=== PATIENT | female | born 1990 | race Caucasian/White ===

== ENCOUNTER 2018-03-31 21:03 | Emergency (ER) | payer SELFPAY ==
[2018-03-31 21:15] VITALS: BP 133/90
--- NOTE | 2018-03-31 21:34 | UC ---
Bite Injury/Animal HPI - HPI Summary HPI Summary: This is linden Tinajero documenting for attending Honey Ball MD. This patient is a 27 year old F presenting to [facility] with a chief complaint of cat bite to her left wrist since 20:30. The patient reports that the cat is a barn cat and received a rabies vaccine in 2017. The patient rates the pain 1/10 in severity. Symptoms aggravated by nothing. Symptoms alleviated by nothing. The patient notes that the cat is being monitored at the vet. - History of Current Complaint Chief Complaint: UCBiteInjury Stated Complaint: CAT BITE Time Seen by Provider: 03/31/18 21:28 Hx Obtained From: Patient Hx Last Menstrual Period: 03/14/18 Severity Currently: Mild Severity Initially: Mild Pain Intensity: 1 Pain Scale Used: 0-10 Numeric Onset/Duration: Sudden Onset, Lasting Hours, Still Present Type of Bite: Animal - barn cat Has Animal Been Immunized?: Yes Aggravating Factor(s): Nothing Alleviating Factor(s): Nothing Associated Signs And Symptoms: Positive: Negative Animal Available for Observation: Yes Animal Control Notified: Yes - Allergies/Home Medications Allergies/Adverse Reactions: Allergies Allergy/AdvReac Type Severity Reaction Status Date / Time codeine Allergy Fever Verified 03/31/18 21:15 Home Medications: Home Medications Escitalopram Oxalate [Lexapro 10 mg] 03/31/18 [History] buPROPion HCl [Bupropion HCl] 150 mg 03/31/18 [History] traZODone TAB* [Desyrel TAB*] 03/31/18 [History] PMH/Surg Hx/FS Hx/Imm Hx Previously Healthy: Yes Other Endocrine History: negative Other Cardiovascular History: negative Other Respiratory History: negative Other GI/ History: negative Other Neurological History: negative Other Psychological History: negative Other Cancer History: negative - Surgical History Surgical History: Yes Surgery Procedure, Year, and Place: appy as a child. ORIF femur 2004 - Family History Known Family History: Positive: None - patient denies relevant FHx - Social History Alcohol Use: None Substance Use Type: None Smoking Status (MU): Never Smoked Tobacco - Immunization History Most Recent Tetanus Shot: 09/14/13 Review of Systems Constitutional: Negative - negative fever Skin: Other - cat bite to left wrist Eyes: Negative ENT: Negative - negative epistaxis Respiratory: Negative Gastrointestinal: Negative - negative vomiting Genitourinary: Negative Motor: Negative Neurovascular: Negative Musculoskeletal: Negative Neurological: Negative Psychological: Negative Is Patient Immunocompromised?: No All Other Systems Reviewed And Are Negative: Yes Physical Exam - Summary Physical Exam Summary: Appearance: Well-Appearing, No Pain Distress, Well-Nourished Eyes: conjunctiva clear, no discharge ENT: Hearing grossly normal, no muffled/hoarse voice. Neck: Normal, Supple Respiratory/Lung Sounds: Lungs clear, Normal breath sounds, No respiratory distress, No accessory muscle use Cardiovascular: RRR, No murmur Abdomen: Nontender, Soft, no guarding, not distended Bowel Sounds: Present Musculoskeletal: Normal Neurological: Alert, muscle tone normal Psychiatric:Normal, age appropriate behavior Skin: small bite wounds with some breakage of the skin on dorsal left wrist and the base of the thumb, mildly erythematous but no active discharge Triage Information Reviewed: Yes Vital Signs: Initial Vital Signs Temp 99.6 F 03/31/18 21:10 Pulse 79 03/31/18 21:10 Resp 16 03/31/18 21:10 BP 133/90 03/31/18 21:10 Pulse Ox 100 03/31/18 21:10 Vital Signs Reviewed: Yes Bite Injury Course/Dx - Course Course Of Treatment: During the visit today, we discussed the findings and further plan. She had her last tetanus shot here in August 2013 . One dose of Augmentin was given to her in urgent care today . Wound was cleaned and dressed. I will prescribe the medication to the pharmacy . Patient expressed understanding . - Differential Dx/Diagnosis Provider Diagnoses: cat bite Discharge - Sign-Out/Discharge Documenting (check all that apply): Patient Departure - Discharge Plan Condition: Stable Disposition: HOME Prescriptions: Amoxicillin/Clavulanate TAB* [Augmentin TAB 875*] 875 mg PO BID 10 Days #20 tab Patient Education Materials: Animal Bite (ED) Referrals: [facility] [place] [facility] [Outside] - 1 Week Additional Instructions: Please start taking the medication as prescribed to the pharmacy . Follow up with your primary care doctor in 1 week. Return to Urgent care / ER if symptoms get worse. - Billing Disposition and Condition Condition: STABLE Disposition: Home Images Hands: 1 - Cat bite wounds
[2018-03-31] MEDS ORDERED: Amoxicillin/Clavulanate TAB* 875 MG PO ONE (21:40)
--- NOTE | 2018-04-01 09:31 | ED ---
Progress - Progress Note Progress Note: Haven Shabazz, at [facility] requests antibiotic prescribed yesterday to be sent to [facility]. Per pharmacist, per pt, [facility] does not have the RX. Chart reviewed, per Dr. Ball, RX given verbally to Harika Orourke for Augmentin 875mg po bid #20 for animal bite. Pablo Kiser MD 04/01/18 0930 Course/Dx - Course Course Of Treatment: During the visit today, we discussed the findings and further plan. She had her last tetanus shot here in August 2013 . One dose of Augmentin was given to her in urgent care today . Wound was cleaned and dressed. I will prescribe the medication to the pharmacy . Patient expressed understanding . Discharge - Sign-Out/Discharge Documenting (check all that apply): Post-Discharge Follow Up - antibiotic phoned verbally to [facility] - Discharge Plan Condition: Stable Disposition: HOME Prescriptions: Amoxicillin/Clavulanate TAB* [Augmentin TAB 875*] 875 mg PO BID 10 Days #20 tab Patient Education Materials: Animal Bite (ED) Referrals: [facility] [place] [facility] [Outside] - 1 Week Additional Instructions: Please start taking the medication as prescribed to the pharmacy . Follow up with your primary care doctor in 1 week. Return to Urgent care / ER if symptoms get worse. - Billing Disposition and Condition Condition: STABLE Disposition: Home
== END 2018-03-31 22:05 | disposition home or self-care (01) ==
LOC: UCEAST 21:03
DX: S61.532A Puncture wound without foreign body of left wrist, initial encounter (principal); S61.032A Puncture wound without foreign body of left thumb without damage to nail, initial encounter; W55.01XA Bitten by cat, initial encounter; Y93.9 Activity, unspecified; Y92.9 Unspecified place or not applicable; Z88.5 Allergy status to narcotic agent
CPT/HCPCS: 99202; A9270-GY; G0463

== ENCOUNTER 2018-11-24 14:52 | Emergency (ER) | payer OTHER ==
--- NOTE | 2018-11-24 16:38 | ED ---
Head Injury - HPI Summary HPI Summary: 28-year-old female presents with head injury today. States she fell off her horse. She was wearing a helmet She states she lost consciousness. She is unsure how long she was unconscious. States that she woke up and her horse was next to her. She took her horse back to the barn but does not remember doing so. She states she is a little dizzy. Denies any photophobia or difficulties concentrating. No neck pain. No other injury. She has mild headache. no back pain, chest pain, SOB, or abdominal pain. She states her symptoms have been improving. She is not on blood thinners. Has no medical conditions. - History Of Current Complaint Chief Complaint: EDHeadInjury Stated Complaint: HEAD INJURY/MISSING 5 MIN OF MEMORY/NAUSEAPER PT Time Seen by Provider: 11/24/18 16:10 Hx Last Menstrual Period: 03/14/18 Pain Intensity: 1 - Allergies/Home Medications Allergies/Adverse Reactions: Allergies Allergy/AdvReac Type Severity Reaction Status Date / Time codeine Allergy Fever Verified 03/31/18 21:15 Home Medications: Home Medications LORazepam [Lorazepam] 0.5 mg PO TID PRN MDD 3 11/24/18 [History Confirmed ] Rizatriptan Benzoate [Rizatriptan Benzoate Odt] 10 mg PO BID 11/24/18 [History Confirmed 11/24/18] lamoTRIgine TAB(*) [LaMICtal TAB(*)] 50 mg PO BEDTIME 11/24/18 [History Confirmed 11/24/18] PMH/Surg Hx/FS Hx/Imm Hx Endocrine/Hematology History: Denies: Hx Anticoagulant Therapy Respiratory History: Denies: Hx Asthma - Surgical History Surgery Procedure, Year, and Place: appy as a child. ORIF femur 2004 Infectious Disease History: No Infectious Disease History: Denies: Traveled Outside the [place] in Last 30 Days - Family History Known Family History: Positive: None - patient denies relevant FHx - Social History Alcohol Use: None Substance Use Type: Reports: None Smoking Status (MU): Never Smoked Tobacco Review of Systems Negative: Fever Negative: Chest Pain Negative: Shortness Of Breath Positive: Headache All Other Systems Reviewed And Are Negative: Yes Physical Exam Triage Information Reviewed: Yes Vital Signs On Initial Exam: Initial Vitals Temp Pulse Resp BP Pulse Ox 98.9 F 89 16 155/101 100 11/24/18 14:56 11/24/18 14:56 11/24/18 14:56 11/24/18 14:56 11/24/18 14:56 Vital Signs Reviewed: Yes Appearance: Positive: Well-Appearing Skin: Positive: Warm, Dry Head/Face: Positive: Normal Head/Face Inspection, Other - no step off, racoon eyes, garrido sign Eyes: Positive: Normal, EOMI, LILIANA, Conjunctiva Clear ENT: Positive: Normal ENT inspection, Pharynx normal, TMs normal Neck: Positive: Other: - nontender neck, full ROM neck Respiratory/Lung Sounds: Positive: Clear to Auscultation, Breath Sounds Present Cardiovascular: Positive: Normal, RRR Abdomen Description: Positive: Nontender, Soft Bowel Sounds: Positive: Present Musculoskeletal: Positive: Normal Neurological: Positive: Sensory/Motor Intact, Alert, Oriented to Person Place, Time, CN Intact II-III Psychiatric: Positive: Normal - Susie Coma Scale Best Eye Response: 4 - Spontaneous Best Motor Response: 6 - Obeys Commands Best Verbal Response: 5 - Oriented Coma Scale Total: 15 Diagnostics - Vital Signs Vital Signs Temp Pulse Resp BP Pulse Ox 11/24/18 14:56 98.9 F 89 16 155/101 100 - Laboratory Lab Statement: Any lab studies that have been ordered have been reviewed, and results considered in the medical decision making process. - CT brain CT Interpretation Completed By: Radiologist Summary of CT Findings: IMPRESSION: NO ACUTE INTRACRANIAL PATHOLOGY. Head Injury Course/Dx Course Of Treatment: 28-year-old female presents with head injury today. States she fell off her horse. She was wearing a helmet She states she lost consciousness. She is unsure how long she was unconscious. States that she woke up and her horse was next to her. She took her horse back to the barn but does not remember doing so. She states she is a little dizzy. Denies any photophobia or difficulties concentrating. No neck pain. No other injury. She has mild headache. no back pain, chest pain, SOB, or abdominal pain. She states her symptoms have been improving. She is not on blood thinners. Has no medical conditions. On exam is normal neuro exam. With loss conscious and amnesia got CT. CT shows no acute findings. will discharge with concussion precautions. patient understand and agrees with plan. - Diagnoses Differential Diagnosis/HQI/PQRI: Concussion Without LOC, Contusion, Intracranial Bleed Provider Diagnoses: Head injury Discharge - Sign-Out/Discharge Documenting (check all that apply): Patient Departure Patient Received Moderate/Deep Sedation with Procedure: No - Discharge Plan Condition: Good Disposition: HOME Patient Education Materials: Concussion (ED) Referrals: [facility] [place] [facility] [Outside] Additional Instructions: Place ice on area as needed Take Tylenol or ibuprofen for headache every 6 hours Modify activities as tolerated Follow up with primary within 5 days Return to ED if develop any new or worsening symptoms - Billing Disposition and Condition Condition: GOOD Disposition: Home
[2018-11-24 17:40] VITALS: BP 124/88
== END 2018-11-24 17:37 | disposition home or self-care (01) ==
LOC: ED 14:52
DX: S09.90XA Unspecified injury of head, initial encounter (principal); R51 Headache; Y93.52 Activity, horseback riding; Y92.9 Unspecified place or not applicable; Z88.6 Allergy status to analgesic agent; R42 Dizziness and giddiness
CPT/HCPCS: 70450; 99281